=== PATIENT | female | born 1995 | race Hispanic/Latino ===

== ENCOUNTER 2023-02-02 09:54 | Day surgery (SDC) | payer OTHER, SELFPAY ==
[2023-02-02] VITALS (7 sets, daily range): BP systolic 107–122; BP diastolic 71–83; PULSE 73–93; RESP 12–24; TEMP 36.4–36.7; O2SAT 16–100; BMI 27.4
[2023-02-02] MEDS: LACTATED RINGERS 1,000 ML 42 ML IV ×2 (10:27→12:11)
--- NOTE | 2023-02-02 11:26 | PM.PREOP ---
Pre-operative Note Interval Note History & Physical reviewed/Exam performed by Physician: Yes Changes to H&P: No
--- NOTE | 2023-02-02 11:26 | PM.HP.1 ---
History of Present Illness History of Present Illness Time Patient Seen: 11:26 Chief complaint: Tonsillectomy/Adenoidectomy Narrative: 27-year-old female last seen in clinic 12/14/2022 presents for tonsillectomy and possible adenoidectomy for chronic tonsillitis, recurrent acute tonsillitis and upper airway obstruction. No interval health changes, wishes to proceed. She is unable to take Tylenol, plans on ibuprofen and oxycodone postoperatively. She lives in [facility] and understands the risks if there are complications she would probably need to be seen locally. She is requesting a full 2 weeks off of work after surgery which is granted. [facility] Medical History Migraines Syncope Surgical History H/O wisdom tooth extraction Social History household members: spouse Smoking Status: Never smoker alcohol intake: never Meds Home Medications and Allergies Home Medications Medication Instructions Recorded Confirmed Type rizatriptan 5 mg tablet 5 mg PO Q2-4H PRN Headache 02/02/23 02/02/23 History topiramate 25 mg tablet 75 mg PO BID 02/02/23 02/02/23 History Allergies Allergy/AdvReac Type Severity Reaction Status Date / Time No Known Drug Allergies Allergy Verified 02/02/23 10:09 Review of Systems Review of Systems Narrative: Negative except as listed in the HPI Exam Vital Signs (past 8 hours): - 02/02/23 10:18 Temperature 97.6 F Pulse Rate 85 Respiratory Rate 24 Blood Pressure 114/76 Pulse Oximetry 100 Oxygen Delivery Method Room Air Oxygen Delivery Method Room Air Narrative Exam Narrative: Well-developed well-nourished, heart regular rate and rhythm without murmur, lungs clear to auscultation bilaterally Assessment & Plan Assessment & Plan narrative: Assessment: Chronic tonsillitis, recurrent acute tonsillitis, throat pain, tonsil stones, upper airway obstruction secondary to tonsillar hypertrophy Plan: Following discussion of the material risks benefits complications and alternatives, the patient elected to proceed.
--- NOTE | 2023-02-02 11:28 | PM.OP.1 ---
Operative Date/Time/Diagnoses Date of procedure: 02/02/23 Time of procedure: 12:17 Pre-op diagnosis: Chronic tonsillitis with tonsil stones and throat pain, recurrent acute tonsillitis, upper airway obstruction secondary to tonsillar, possible adenoid hypertrophy Post-op diagnosis: same (with mild adenoid hypertrophy) Procedure & Clinicians Procedure: Tonsillectomy and adenoidectomy Same procedure as scheduled: Yes Indications: 27 Year old with the above diagnoses incompletely managed with medical therapy presents for the above procedure. Following discussion of the material risks benefits complications and alternatives, the patient elected to proceed. Surgeon: Ronak Vieyra Click Yes if Unassisted: Yes Anesthesia Type: General and Local Operative Notes Findings: Intact palate, single uvula, 2-3+ tonsils, 2+ adenoids Estimated Blood Loss (mL): 5 Procedure in detail: Following identification and confirmation of consent the patient was brought to the operating room suite and placed in the supine position. General endotracheal anesthesia was administered. A head wrap, shoulder roll, and mouth gag were placed and a red rubber catheter was inserted through the nostril and out the mouth to retract the soft palate. Partially obstructive adenoid tissue was ablated with suction electrocautery on a setting of 40, without injury to the eustachian tube orifices or choana. The left tonsil was retracted medially and suction electrocautery on a setting of 30 was used to dissect the tonsil in a subcapsular plane, followed by hemostasis with the same. This process was repeated on the right side with identical findings. The tonsillar fossae were superficially infiltrated bilaterally with 2% lidocaine 1 100,000 epinephrine. Mouth gag and rubber catheter were removed and the patient was extubated in the operating room and taken to the recovery room in stable condition without known complication. Complications: none Post-operative Condition: stable Disposition: same day surgery Plan for aftercare: Push fluids, Advil every 6 hours for baseline pain control, oxycodone for breakthrough pain. Soft diet 2 full weeks, no heavy lifting or straining 2 weeks.
--- NOTE | 2023-02-02 12:02 | SUR.OPER ---
Supine on padded OR bed, head on pillow, arms secured on padded arm boards at <90 degrees abduction, legs uncrossed, safety belt at thigh, tape over blanket over lower legs.
[2023-02-02] MEDS: LIDOCAINE 2% W/EPI INJ 20 ML INJ (12:04)
[2023-02-02] MEDS: BENZOCAINE/MENTHOL 1 LOZ PKT 1 EACH PO (12:37)
[2023-02-02] MEDS: ONDANSETRON 4 MG/2 ML INJ IV (12:47)
[2023-02-02] MEDS: OXYCODONE IR 5 MG TABLET PO (12:47)
== END 2023-02-02 13:19 | disposition home or self-care (01) ==
PROVIDERS: Referring Provider Otolaryngology; Visit Provider Otolaryngology
PROC: (CPT 42821; principal; 2023-02-02 11:00)
DX: J03.91 Acute recurrent tonsillitis, unspecified (principal); J35.8 Other chronic diseases of tonsils and adenoids; J98.8 Other specified respiratory disorders
CPT/HCPCS: 42821; 81025; J0330; J2250; J2405; J2704; J3010